=== PATIENT | male | born 1975 | race Caucasian/White ===

== ENCOUNTER 2017-04-06 11:33 | Day surgery (SDC) | payer BC, SELFPAY ==
[2017-04-02 15:41] VITALS: BMI 36.3
[2017-04-06] VITALS (7 sets, daily range): BP systolic 137–149; BP diastolic 78–91; PULSE 71–84; RESP 18; O2SAT 95–98; BMI 36.3
--- NOTE | 2017-04-06 13:06 | HMH.SCOPE ---
- Procedure: Date: 04/06/17 Patient Date of :: 1975 Procedure Performed:: Flexible Sigmoidoscopyaborted Colonoscopy Equipment: Olympus 180 variable stiffness pediatric colonoscope Indications:: Mr. Brown is a 41-year-old gentleman who is here for diagnostic colonoscopy. He has had left lower quadrant abdominal pain that is dull and constant and waxes and wanes in intensity. This has been going on for 3-4 months. The patient stays constipated and has taken ntsl-hrz-yipnlcy laxatives which causes cramps. He reports some bleeding which he attributes to hemorrhoids and describes this as bright red blood with some hemorrhoidal prolapse. This bleeding does occur with his bowel movements. He reports no gassiness or bloating. He reports no fever. His abdominal pain often improves some with the use of Tylenol. He reports no weight loss or family history of colon cancer. Performing Provider:: Noe Rosales MD Referring Provider:: Bandar Banegas MD/Cinthia Araujo PA-C Sedation:: Fentanyl 150 mg IV/ Versed 7 mg IV Procedure:: Prior to the procedure, a history and physical exam was performed, and patient's medications and allergies were reviewed. The risks, benefits and alternatives of the sedation and procedure were discussed with the patient. All questions were answered and informed consent was obtained. The patient was brought to the procedure room. Patient identification and proposed procedure were verified by the physician and the nurse. The patient was placed in a left lateral decubitus position and the scope was passed under direct vision. Throughout the procedure, the patient's blood pressure, pulse, and oxygen saturations were monitored continuously. The colonoscopy was accomplished without difficulty. The patient tolerated the procedure well. Findings:: On digital rectal examination there was normal rectal tone there were no external hemorrhoids the scope was inserted through the anal canal into the rectum and advanced to the mid sigmoid colon. The preparation was very poor with liquid and solid brown stool impairing visualization and advancement of the colonoscope. Upon withdrawal there was one large pedunculated polyp that appeared to be an advanced adenomatous polyp and another moderate sized polyp with 3 additional small polyps. Because of the impaired view because of liquid/solid fecal content and being obscured by this, the polyps were not removed because of the circumstances. There were some diverticuli noted. Upon retroflexion there were grade 1-2 internal hemorrhoids. Impression: 1. Poorly prepped colonoscopyprocedure aborted Recommendations:: Plan: Because of the larger colon polyps identified, I am going to recommend colonoscopy soon with removal of these polyps and examination of the entire colon. I would consider hemorrhoid band ligation based on the size of the hemorrhoids as well. I will discuss this with the patient and family. Complications:: None Estimated blood obtained (mL): 0
--- NOTE | 2017-04-06 13:16 | P.PCN_ITS ---
- Procedure: Date: 04/06/17 Patient Date of :: 1975 Procedure Performed:: Flexible Sigmoidoscopyaborted Colonoscopy Equipment: Olympus 180 variable stiffness pediatric colonoscope Indications:: Mr. Brown is a 41-year-old gentleman who is here for diagnostic colonoscopy. He has had left lower quadrant abdominal pain that is dull and constant and waxes and wanes in intensity. This has been going on for 3-4 months. The patient stays constipated and has taken fpht-fov-mbdrfvv laxatives which causes cramps. He reports some bleeding which he attributes to hemorrhoids and describes this as bright red blood with some hemorrhoidal prolapse. This bleeding does occur with his bowel movements. He reports no gassiness or bloating. He reports no fever. His abdominal pain often improves some with the use of Tylenol. He reports no weight loss or family history of colon cancer. Performing Provider:: Noe Rosales MD Referring Provider:: Bandar Banegas MD/Cinthia Araujo PA-C Sedation:: Fentanyl 150 mg IV/ Versed 7 mg IV Procedure:: Prior to the procedure, a history and physical exam was performed, and patient' s medications and allergies were reviewed. The risks, benefits and alternatives of the sedation and procedure were discussed with the patient. All questions were answered and informed consent was obtained. The patient was brought to the procedure room. Patient identification and proposed procedure were verified by the physician and the nurse. The patient was placed in a left lateral decubitus position and the scope was passed under direct vision. Throughout the procedure, the patient's blood pressure, pulse, and oxygen saturations were monitored continuously. The colonoscopy was accomplished without difficulty. The patient tolerated the procedure well. Findings:: On digital rectal examination there was normal rectal tone there were no external hemorrhoids the scope was inserted through the anal canal into the rectum and advanced to the mid sigmoid colon. The preparation was very poor with liquid and solid brown stool impairing visualization and advancement of the colonoscope. Upon withdrawal there was one large pedunculated polyp that appeared to be an advanced adenomatous polyp and another moderate sized polyp with 3 additional small polyps. Because of the impaired view because of liquid/ solid fecal content and being obscured by this, the polyps were not removed because of the circumstances. There were some diverticuli noted. Upon retroflexion there were grade 1-2 internal hemorrhoids. Impression: 1. Poorly prepped colonoscopyprocedure aborted Recommendations:: Plan: Because of the larger colon polyps identified, I am going to recommend colonoscopy soon with removal of these polyps and examination of the entire colon. I would consider hemorrhoid band ligation based on the size of the hemorrhoids as well. I will discuss this with the patient and family. Complications:: None Estimated blood obtained (mL): 0
== END 2017-04-06 14:00 | disposition home or self-care (01) ==
PROVIDERS: Family Provider Family Medicine; PCP Family Medicine; Visit Provider Internal Medicine Gastroenterology
PROC: 0DJD8ZZ Inspection of Lower Intestinal Tract, Via Natural or Artificial Opening Endoscopic (ICD-10-PCS; CPT 45378; principal; 2017-04-06 13:00)
DX: K63.5 Polyp of colon
CPT/HCPCS: 45330; 99152

== ENCOUNTER 2017-04-13 06:22 | Day surgery (SDC) | payer BC, SELFPAY ==
[2017-04-09 14:22] VITALS: BMI 36.3
[2017-04-13] VITALS (13 sets, daily range): BP systolic 119–162; BP diastolic 1–99; PULSE 70–92; RESP 18–29; TEMP 36.6–36.7; O2SAT 95–99
--- NOTE | 2017-04-13 07:42 | HMH.PROC ---
[facility] Procedure Note Procedure Note:: Colonoscopy Procedure Report: Colonoscopy with cold and hot snare polypectomy and Endo Clip placement Endoscopist: Noe Rosales II, MD Referring physician: Bandar Banegas MD/Cinthia Araujo PA-C Date of Procedure: April 13, 2017 Equipment: Olympus 180 variable stiffness pediatric colonoscope Sedation: Fentanyl 100 mg IV/ Versed 7 mg IV Indication: Mr. Brown is a 41-year-old gentleman here for diagnostic colonoscopy. He has had left lower abdominal pain which is dull and constant but waxes and wanes in intensity. This is been going on for 3-4 months. He has had some constipation and takes uekl-zos-mvithzb laxatives which resulted in some crampy discomfort. He also reports some rectal bleeding which he attributes to internal hemorrhoids and describes this as bright red in nature. He does have some hemorrhoidal prolapse. The bleeding does occur after his bowel movements. He has some improvement of his abdominal pain with Tylenol. He reports no change in his bowel habits, weight loss or family history of colon cancer. He reports no gassiness or bloating. Procedure: Prior to the procedure, a history and physical exam was performed, and patient's medications and allergies were reviewed. The risks, benefits and alternatives of the sedation and procedure were discussed with the patient. All questions were answered and informed consent was obtained. The patient was brought to the procedure room. Patient identification and proposed procedure were verified by the physician and the nurse. The patient was placed in a left lateral decubitus position and the scope was passed under direct vision. Throughout the procedure, the patient's blood pressure, pulse, and oxygen saturations were monitored continuously. The colonoscopy was accomplished without difficulty. The patient tolerated the procedure well. Findings: On digital rectal examination there was normal rectal tone. There were no external hemorrhoids. The colonoscope was introduced through the anal canal to the rectum and advanced to the cecum. The ileocecal valve and appendiceal orifice were identified. The scope was advanced a short distance into the ileum which appeared grossly normal. The scope was then withdrawn into the colon. The preparation was poor with a Erin preparation score of 4. In the sigmoid colon there were 2 larger pedunculated polyps ranging from 14 to 20 mm in size. Both of these were removed via snare cautery. This post polypectomy stalks were clipped using an Endo Clip to provide hemostasis. There were 4 additional sessile polyps range from 5-7 mm in the rectosigmoid and rectum removed via cold snare polypectomy. There were a few scattered diverticuli throughout the descending and sigmoid colon (LEFT colon). The rectum itself was normal. Upon retroflexion within the rectum there were grade 1 internal hemorrhoids. Impression: 1. 2 larger pedunculated sigmoid polyps (14 and 20 mm sizes) 2. 4 additional diminutive rectosigmoid/rectal polyps 3. Mild left-sided diverticulosis 4. Poor bowel preparation (Erin preparation score 4 out of 10) Plan: I will follow-up the polyp histology and repeat screening/surveillance colonoscopy again in 1-2 years based on the histology. I would encourage a fiber bowel regimen on a long-term daily maintenance basis.
--- NOTE | 2017-04-13 07:47 | SUR.OPER ---
CAUTERY 200, COAG 25. GROUNDED TO RIGHT FLANK. SKIN INTACT UPON REMOVAL.
--- NOTE | 2017-04-13 08:14 | P.PCN_ITS ---
[facility] Procedure Note Procedure Note:: Colonoscopy Procedure Report: Colonoscopy with cold and hot snare polypectomy and Endo Clip placement Endoscopist: Noe Rosales II, MD Referring physician: Bandar Bnaegas MD/Cinthia Araujo PA-C Date of Procedure: April 13, 2017 Equipment: Olympus 180 variable stiffness pediatric colonoscope Sedation: Fentanyl 100 mg IV/ Versed 7 mg IV Indication: Mr. Brown is a 41-year-old gentleman here for diagnostic colonoscopy. He has had left lower abdominal pain which is dull and constant but waxes and wanes in intensity. This is been going on for 3-4 months. He has had some constipation and takes olzn-agc-qahockn laxatives which resulted in some crampy discomfort. He also reports some rectal bleeding which he attributes to internal hemorrhoids and describes this as bright red in nature. He does have some hemorrhoidal prolapse. The bleeding does occur after his bowel movements. He has some improvement of his abdominal pain with Tylenol. He reports no change in his bowel habits, weight loss or family history of colon cancer. He reports no gassiness or bloating. Procedure: Prior to the procedure, a history and physical exam was performed, and patient' s medications and allergies were reviewed. The risks, benefits and alternatives of the sedation and procedure were discussed with the patient. All questions were answered and informed consent was obtained. The patient was brought to the procedure room. Patient identification and proposed procedure were verified by the physician and the nurse. The patient was placed in a left lateral decubitus position and the scope was passed under direct vision. Throughout the procedure, the patient's blood pressure, pulse, and oxygen saturations were monitored continuously. The colonoscopy was accomplished without difficulty. The patient tolerated the procedure well. Findings: On digital rectal examination there was normal rectal tone. There were no external hemorrhoids. The colonoscope was introduced through the anal canal to the rectum and advanced to the cecum. The ileocecal valve and appendiceal orifice were identified. The scope was advanced a short distance into the ileum which appeared grossly normal. The scope was then withdrawn into the colon. The preparation was poor with a Rufus preparation score of 4. In the sigmoid colon there were 2 larger pedunculated polyps ranging from 14 to 20 mm in size. Both of these were removed via snare cautery. This post polypectomy stalks were clipped using an Endo Clip to provide hemostasis. There were 4 additional sessile polyps range from 5-7 mm in the rectosigmoid and rectum removed via cold snare polypectomy. There were a few scattered diverticuli throughout the descending and sigmoid colon (LEFT colon). The rectum itself was normal. Upon retroflexion within the rectum there were grade 1 internal hemorrhoids. Impression: 1. 2 larger pedunculated sigmoid polyps (14 and 20 mm sizes) 2. 4 additional diminutive rectosigmoid/rectal polyps 3. Mild left-sided diverticulosis 4. Poor bowel preparation (Rufus preparation score 4 out of 10) Plan: I will follow-up the polyp histology and repeat screening/surveillance colonoscopy again in 1-2 years based on the histology. I would encourage a fiber bowel regimen on a long-term daily maintenance basis.
--- NOTE | 2017-04-13 11:44 | SUR.PHASEII ---
Addendum entered by Lyric De La Rosa RN 04/13/17 11:44: pt called and notified about appt at 1144am. Original Note: fu appt made for follow up with gisel on july 06 at 8:30am
== END 2017-04-13 09:45 | disposition home or self-care (01) ==
LOC: OUTP 06:24
PROVIDERS: Family Provider Family Medicine; PCP Family Medicine; Visit Provider Internal Medicine Gastroenterology
PROC: 0DJD8ZZ Inspection of Lower Intestinal Tract, Via Natural or Artificial Opening Endoscopic (ICD-10-PCS; CPT 45378; principal; 2017-04-13 07:30)
DX: D12.5 Benign neoplasm of sigmoid colon; K57.30 Diverticulosis of large intestine without perforation or abscess without bleeding
CPT/HCPCS: 45384; 45380; 99152; 99153

== ENCOUNTER → 2017-08-20 09:30 | Outpatient (CLI) | payer BC, SELFPAY ==
--- NOTE | 2017-08-20 09:34 | CT_ITS ---
CT angio abdomen CLINICAL INDICATION: Abdominal pain, lower abdominal pain ITS.REASON: AORTITIS ORDERING PHYSICIAN: Edwin Banegas MD PATIENT AGE: 42 years COMPARISON: 5 08/24/2018 TECHNIQUE: Axial images obtained with sagittal and coronal reformats. All CT scans at the facility use one or more dose reduction, viz: automated exposure control; ma/kV adjustment per patient size (including targeted exams where dose is matched to indication; i.e. head); or iterative reconstruction technique. PROCEDURE: Oral Contrast: None IV Contrast: 100 mg of Isovue-370. FINDINGS: Angiographic findings: Abnormal soft tissue density surrounding the lower abdominal aorta beginning inferior to the level the renal arteries and extending to the aortic bifurcation measuring up to 3.8 cm in width, 3.2 cm AP and 5.5 similar cephalad to caudad. The margins of the soft tissue density is fairly well-circumscribed. There is some minimal calcification around the aortic lumen. This appears to be periaortic soft tissue density as opposed to a thrombosed aneurysm.. This does not encase the ureters. No evidence of renal artery stenosis. The superior mesenteric artery and celiac artery are unremarkable. The abnormal soft tissue density does encase the ostium of the inferior mesenteric artery without evidence of occlusion. Nonangiographic findings: Pleural thickening is present involving the lower chest anteriorly centrally and on the right. There are bilateral nonobstructing renal calculi measuring up to 8 mm in the mid polar region on the right and 8 mm in the mid polar region on the left. IMPRESSION: 1. The findings are compatible with progression of retroperitoneal fibrosis/periaortitis with increased soft tissue surrounding the lower abdominal aorta as described above. MRI without and with contrast may confirm. No ureteral dilatation. 2. Bilateral nonobstructing nephrolithiasis.
== END ==
PROVIDERS: Family Provider Family Medicine; PCP Family Medicine; Visit Provider Family Medicine
DX: I77.6 Arteritis, unspecified (principal)
CPT/HCPCS: 74175; Q9967

== ENCOUNTER → 2017-11-02 16:43 | Outpatient (CLI) | payer BC, SELFPAY ==
--- NOTE | 2017-11-02 | XR_ITS ---
XR chest 2V HISTORY: Shortness of breath ITS.REASON: SOB ORDERING PHYSICIAN: Elsa Karimi MD PATIENT AGE: 42 years COMPARISON: 07/25/2014 FINDINGS: There is mild cardiomegaly without failure. Chronic changes are present on the right with pleural thickening in the right upper chest laterally and fibrotic changes in the right upper lobe laterally and right lung base with elevated right hemidiaphragm and pleural thickening in the right lung base. Left lung is clear. No acute bony anomalies. IMPRESSION: Cardiomegaly with chronic changes on the right. No change with no acute finding
== END ==
PROVIDERS: PCP Family Medicine; Visit Provider Family Medicine
DX: R06.02 Shortness of breath (principal)
CPT/HCPCS: 71046

== ENCOUNTER → 2018-02-10 16:58 | Outpatient (POV) | payer BC, SELFPAY | DX: Z00.00 Encounter for general adult medical examination without abnormal findings (principal) ==

== ENCOUNTER → 2018-03-04 12:37 | Outpatient (CLI) | payer BC, SELFPAY ==
--- NOTE | 2018-03-04 12:48 | CA_ITS ---
PROCEDURE: INDICATIONS FOR THE TEST: Chest pain+ COPD Heart Murmur Tobacco Smoking+ Palpitations+ Fatigue+ Syncope Edema+ Hypertension Diabetes Mellitus Rheumatic Fever SOB+VASQUEZ Obesity Hyperlipidemia Family History HD Additional History asthma, dizziness PATIENT INFORMATION HEIGHT: 73 WEIGHT:309 GENDER: Male B/P: 154/92 2-D/M-MODE INTERPRETATION: 2-D MEASUREMENTS OBSERVED VALUES IN CMS Right Ventricular Dimension (RVDd) 3.5 Interventricular Septum (Thickness)(IVsd) 1.1 Left Ventricular Internal Dimensions(LVIDd) 4.2 Left Ventricular Posterior Wall (Thickness)(LVPWd) 1.1 Aortic Root 3.3 Aortic Cusp Separation 2.3 Left Atrial Dimensions (LAD) 3.3 2D 1. Left atrium is normal size, left ventricle is normal size, left ventricle wall thickness is upper limit of the normal, there is preserved left ventricular systolic function, visually estimated ejection fraction 55% with no regional wall motion abnormality. 2. The right atrium and right ventricle are normal size and contractility. 3. The aortic valve is minimally thickened and fibrosed. 4. The mitral and tricuspid valvular grossly normal. 5. The pulmonic valve is poorly visualized. 6. No significant pericardial effusion noted. DOPPLER INTERROGATION: Doppler interrogation of the aortic, mitral and tricuspid valve reveals presence of mild mitral and tricuspid regurgitation, tricuspid regurgitation jet velocity is inadequate for calculation of the right ventricular systolic pressure, diastolic parameters are inconclusive. CONCLUSION: 1. Technically difficult study because of the patient's factor and poor acoustic windows 2. Normal left ventricular size, preserved left ventricular systolic function, visually estimated ejection fraction 55% with no regional wall motion abnormality, diastolic parameters are inconclusive. 3. Mild mitral and tricuspid regurgitation 4. No significant pericardial effusion noted.
--- NOTE | 2018-03-04 13:18 | CT_ITS ---
CT abdomen wo con INDICATION: Retroperitoneal fibrosis. Retroperitoneal mass. Follow-up CT Checking to see if medications help effective ITS.REASON: ABD AND PELVIS SWELLING,MASS ORDERING PHYSICIAN: Betty Billy PATIENT AGE: 42 years COMPARISON: Previous CT abdomen from 08/20/2017. With contrast. TECHNIQUE: No oral nor IV contrast utilized today Axial images obtained obtained through the abdomen only. Pelvis was not imaged/and not ordered. From the acquired images axial sagittal and coronal reformats performed. All CT scans at the facility use one or more dose reduction, viz: automated exposure control, ma/kV adjustment per patient size (including targeted exams where dose is matched to indication, i.e. head), or iterative reconstruction technique. FINDINGS: Lung bases... No new findings.. Fibrotic pleural parenchymal scarring seen at right lung base most evident anteriorly. Immediately above right and yields upper tenting of right hemidiaphragm & slight shift of mediastinum to the right.. No notable change since CT study Jul, 2017. 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 Abdomen/.. Lack of oral and IV contrast decreases sensitivity. Liver. Diffuse fatty changes of liver.. Noncontrast images the liver spleen pancreas unremarkable. Adrenals appear normal. Gallbladder is been removed. No ductal dilatation the pancreatic duct normal. Bilateral renal calculi. Nonobstructive calculi most evident at the left kidney. At the left kidney there is a 6 mm calculus upper pole,; with a a near 7 mm calculus another at midportion left kidney.; & Smaller 4 mm calculus at the lower pole... Nonobstructive calculi. Right kidney. 8 mm calculus at mid right kidney. Duplex collecting system on the right. 2 ureters. Both appear patent and normal caliber. No obstructive uropathy. . On the previous July 2017 studies there is a significant rim of soft tissue surrounding the aorta. This is most pronounced just above bifurcation and the GWEN was seen passing through this thickened soft tissue within the tissue. There is been dramatic interval improvement. The the previous retroperitoneal soft tissue density/mass surrounding lower abdominal aorta has nearly resolved with only scant if any residual. Aorta appears satisfactory here with no soft tissue density about the GWEN origin GWEN unremarkable Common iliac arteries unremarkable. The large and small bowel appears satisfactory. Moderate stool is seen throughout the large bowel. Region of trauma ileum unremarkable. Appendix is been removed. The mesentery shows no significant adenopathy or mass. Images extending down below umbilicus into the upper pelvis but imaging did not extend to the pelvic basin. IMPRESSION 1. There is been marked/dramatic improvement retroperitoneal fibrosis soft tissue density surrounding the aorta. The soft tissue density here has nearly & /basically resolved , with only scant if any residual. Near-complete regression 2. Moderate size Bilateral nonobstructive renal calculi. With Largest measuring near 7 mm mid right & left kidney. 3. Diffuse fatty changes of liver. .
== END ==
PROVIDERS: PCP Family Medicine; Visit Provider Nurse Practitioner Women's Health
DX: R06.02 Shortness of breath (principal); R19.00 Intra-abdominal and pelvic swelling, mass and lump, unspecified site; I77.6 Arteritis, unspecified
CPT/HCPCS: 74150; 93306

== ENCOUNTER → 2020-04-13 14:23 | Outpatient (CLI) | payer BC, SELFPAY | PROVIDERS: PCP Physician Assistant; Visit Provider Physician Assistant | DX: Z20.822 Contact with and (suspected) exposure to COVID-19 (principal) | CPT/HCPCS: U0003 ==

== ENCOUNTER 2020-12-04 22:21 | Emergency (ER) | payer BC, SELFPAY ==
[2020-12-04 22:22] VITALS: BP 134/76; PULSE 93; RESP 18; TEMP 36.7; O2SAT 98; BMI 37.8
--- NOTE | 2020-12-04 22:41 | CT_ITS ---
PROCEDURE INFORMATION: Exam: CT Abdomen And Pelvis Without Contrast Exam date and time: 12/04/2020 10:41 PM Age: 45 years old Clinical indication: Abdominal pain; Flank; Left; Prior surgery; Surgery date: 3-7 days post-operative; Surgery type: Lithotripsy last , HX of gallbladder and appendix SX; Additional info: Lt flank pain TECHNIQUE: Imaging protocol: Computed tomography of the abdomen and pelvis without contrast. Radiation optimization: All CT scans at this facility use at least one of these dose optimization techniques: automated exposure control; mA and/or kV adjustment per patient size (includes targeted exams where dose is matched to clinical indication); or iterative reconstruction. COMPARISON: ABDPELW CT abdomen pelvis w con 10/03/2018 10:03 PM FINDINGS: Lungs: Probable scarring in right middle lobe and right base again noted. Calcified pulmonary nodule again seen in the right base. Liver: Diffuse hypoattenuation noted in the liver compatible with steatosis. Gallbladder and bile ducts: Status post cholecystectomy. Pancreas: Normal. No ductal dilation. Spleen: Normal. No splenomegaly. Adrenal glands: Normal. No mass. Kidneys and ureters: The right kidney demonstrates some mild cortical irregularity which may reflect scarring. On the left, there is tbkb-[id number]-uovppkky hydronephrosis. Mild left hydroureter. This appears to be due to a 4 mm mid left ureteral stone. Another stone is seen in the distal left ureter that measures about 4 mm as well. Third stone also measuring about 4 mm is seen in the very distal left ureter. Additional nonobstructing nephrolithiasis is seen in the left kidney with stones measuring up to 6 mm. Stomach and bowel: Unremarkable. No obstruction. No mucosal thickening. Appendix: No evidence of appendicitis. Intraperitoneal space: Unremarkable. No free air. No significant fluid collection. Vasculature: Unremarkable. No abdominal aortic aneurysm. Lymph nodes: Unremarkable. No enlarged lymph nodes. Urinary bladder: Unremarkable as visualized. Reproductive: Unremarkable as visualized. Bones/joints: Unremarkable. No acute fracture. Soft tissues: Unremarkable. IMPRESSION: 1. Njaj-ci-sdyqpxve left hydronephrosis due to at least 3 left ureteral stones measuring about 4 mm each. Additional left nephrolithiasis. 2. Moderate hepatic steatosis
[2020-12-04 22:46] LABS: Microscopic, Urine URINE MICROSCOPIC (MICROSCOPIC)
--- NOTE | 2020-12-04 22:49 | [facility].EDNVD ---
ED Disposition Clinical Impression: Renal colic on left side, Renal insufficiency Disposition: Home, Self-Care Condition on Discharge: Good Instructions: DI for Kidney Stones Additional Instructions: fluids and call urologist in am Referrals: Elsa Karimi MD [Primary Care Provider] - - Critical Care Critical Care Time: No Attestation: On 12/04/20, the high probability of a clinically significant, sudden or life threatening deterioration of the following system(s) required my full and direct attention, intervention and personal management. The time I documented below is in addition to time spent performing reported procedures but includes the following listed in this critical care notation. Medical Decision Making - Medical Records Medical records reviewed: Yes: I reviewed the patient's medical records. - Bill Inquiry Pt receiving controlled substance: No Vital Signs: 12/04/20 22:22 Temperature 98.1 F Temperature Source Oral Pulse Rate [Right] 93 H Respiratory Rate 18 Blood Pressure [Right Arm] 134/76 Blood Pressure Mean [Right Arm] 95 02 Sat by Pulse Oximetry 98 - Lab Data Lab results reviewed: Yes: I reviewed the patient's lab results. Lab Results 12/04/20 22:30: Urine Color Yellow, Urine Appearance Clear, Urine pH 7.0, Ur Specific [place] 1.010, Urine Protein Negative, Urine Glucose (UA) Negative, Urine Ketones Negative, Urine Blood 1+, Urine Nitrate Negative, Urine Bilirubin Negative, Urine Urobilinogen 0.2, Ur Leukocyte Esterase Negative, Urine RBC 3-5, Urine WBC Occasional, Urine Bacteria 1+ 12/04/20 22:43: WBC 12.2 H, RBC 4.98, Hgb 14.9, Hct 44.2, MCV 88.8, MCH 30.0, MCHC 33.7, RDW 13.4, Plt Count 279, MPV 7.6, Neut % (Auto) 67.0, Lymph % (Auto) 19.7, [place] % (Auto) 9.7 H, Eos % (Auto) 3.0, Baso % (Auto) 0.6, Neut # (Auto) 8.2 H, Lymph # (Auto) 2.4, [place] # (Auto) 1.2 H, Eos # (Auto) 0.4, Baso # (Auto) 0.1, ESR 54 H 12/04/20 22:43: Sodium 138, Potassium 4.5, Chloride 101, Carbon Dioxide 27, Anion Gap 14.5, BUN 25 H, Creatinine 1.90 H, Estimated Creat Clear 89, Estimated GFR 38 L, Est GFR ( Amer) 46 L, Glucose 95, Calcium 9.2, Total Bilirubin 0.4, AST 27, ALT 47, Alkaline Phosphatase 53, C-Reactive Protein 71.6 H, Total Protein 8.1, Albumin 4.4, Globulin 3.7 H, Albumin/Globulin Ratio 1.2, Amylase 54, Lipase 42, Procalcitonin 0.179 Result diagrams: 12/04/20 22:43 12/04/20 22:43 Orders (Tests/Meds): ED MEDICATIONS Generic Name Dose Route Start Last Admin Trade Name Freq PRN Reason Stop Dose Admin Sodium Chloride 1,000 mls @ 999 mls/hr 12/04/20 22:45 12/04/20 22:52 Sod Chlor 0.9% 1000ml Bag IV 12/04/20 23:45 999 mls/hr .[id number] YULIYA Administration Discontinued Medications Generic Name Dose Route Start Last Admin Trade Name Freq PRN Reason Stop Dose Admin Ketorolac Tromethamine 30 mg 12/04/20 22:42 12/04/20 22:53 Ketorolac 30mg/Ml Vial IV 12/04/20 22:43 30 mg ONCE ONE Administration Ondansetron HCl 4 mg 12/04/20 22:42 12/04/20 22:52 Ondansetron 4mg/2ml Vial IV 12/04/20 22:43 4 mg ONCE ONE Administration - CT Data CT Scan: Abdomen, Pelvis Time Received: 00:[address] Reviewed: Yes: I have viewed the radiologist's interpretation Preliminary Findings: Abnormal (see report ) Medical Decision Narrative: multiple kidney stones on lt - after urologic procedure Nausea/Vomiting/Diarrhea HPI - General Chief complaint: Abdominal Pain Stated complaint: Possible Kidney stoines Time Seen by Provider: 12/04/20 22:49 Mode of Arrival: Ambulatory Source of Information: Patient, Medical Record Limitations: No Limitations Description of Symptoms (Recalled from ER Triage Doc. by RN): pt states in and had kidney stone blasted, thursday passed a piece of stone. pt c/o lt flank , LLQ pain that progessive got worse. - History of Present Illness HPI Narrative: lt sided pain after recent kidney stone procedure complaint: nausea, abd
[2020-12-04 22:53] LABS: Basophils # 0.1 K/mm3 (0-0.2); Basophils % 0.6 % (0.1-2.0); Eosinophils # 0.4 K/mm3 (0.0-0.4); Hematocrit 44.2 % (42.0-52.0); Hemoglobin 14.9 g/dL (14.1-18.0); Lymphocytes # 2.4 K/mm3 (0.7-4.5); Lymphocytes % 19.7 % (10-50); Mean Corpuscular HGB Conc 33.7 g/dL (31.8-35.4); Mean Corpuscular Volume 88.8 fl (80-94); Mean Platelet Volume 7.6 fl (7.4-10.4); Monocytes # 1.2 K/mm3 (0.1-1.0); Monocytes % 9.7 % (1.7-9.3); Neutrophils # 8.2 K/mm3 (1.8-7.8); Platelet Count 279 K/mm3 (142-424); Red Blood Count 4.98 M/mm3 (4.60-6.20); Red Cell Distribution Width 13.4 % (11.5-17.5); White Blood Count 12.2 K/mm3 (4.8-10.8)
[2020-12-04 22:55] LABS: Appearance,Urine CLEAR (Clear); Bilirubin,Urine Negative (Negative); Blood, Urine 1+ (Negative); Color,Urine YELLOW (Yellow); Glucose,Urine (UA) Negative (Negative); Ketones,Urine Negative (Negative); Leukocyte Esterase,Urine Negative (Negative); Nitrate,Urine Negative (Negative); Protein,Urine Negative (Negative); Urobilinogen,Urine 0.2 EU/dl (0.2)
[2020-12-04 23:00] LABS: Alanine Aminotransferase 47 U/L (12-78); Albumin Level 4.4 g/dl (3.5-5.0); Albumin/Globulin Ratio 1.2 (1.1-1.8); Alkaline Phosphatase 53 U/L (38-126); Amylase 54 U/L (30-110); Anion Gap 14.5 mEq/L (5-15); Aspartate Amino Transferase 27 U/L (17-59); Bilirubin,Total 0.4 mg/dl (0.2-1.3); Blood Urea Nitrogen 25 mg/dl (9-20); Calcium 9.2 mg/dl (8.4-10.2); Carbon Dioxide 27 mmol/L (22.0-30.0); Chloride 101 mmol/L (98-107); Creatinine Clearance Estimated 89 mL/min (50-200); Estimated Glomerular Filt Rate 38 ml/min (>60); GFR (African American) 46 ML/MIN (>60); Globulin 3.7 g/dL (1.3-3.2); Glucose 95 mg/dl (74-100); Lipase 42 U/L (23-300); Potassium 4.5 mmoL/L (3.5-5.1); Sodium 138 mmol/L (136-145); Total Protein,Serum 8.1 g/dl (6.3-8.2)
[2020-12-04 23:05] LABS: C-Reactive Protein 71.6 mg/L (0-4)
[2020-12-04 23:14] LABS: Bacteria,Urine 1+ /lpf; WBC,Urine Occasional #/hpf (0-3)
[2020-12-04 23:19] LABS: Procalcitonin 0.179 ng/mL (0.0-2.0)
[2020-12-04 23:21] LABS: Erythrocyte Sedimentation Rate 54 mm/hr (0-15)
[2020-12-05 00:16] VITALS: BP 125/74; PULSE 68; RESP 18; TEMP 36.7; O2SAT 98
== END 2020-12-05 00:27 | disposition home or self-care (01) ==
PROVIDERS: Emergency Provider Emergency Medicine; PCP Family Medicine
DX: N20.0 Calculus of kidney (principal); N28.9 Disorder of kidney and ureter, unspecified; F17.210 Nicotine dependence, cigarettes, uncomplicated
CPT/HCPCS: 74176; 80053; 81001; 82150; 83690; 84145; 85025; 85651; 86140; 96365; 96375; 99283; J2405

== ENCOUNTER → 2022-01-30 16:33 | Outpatient (CLI) | payer BC, SELFPAY ==
[2022-01-30 17:05] LABS: Influenza A, PCR Not Detected (NotDetected); Influenza B, PCR Not Detected (NotDetected)
--- NOTE | 2022-01-30 17:08 | XR_ITS ---
PROCEDURE INFORMATION: Exam: XR Left Shoulder Exam date and time: 01/30/2022 4:59 PM Age: 46 years old Clinical indication: Pain; Shoulder; Left; Additional info: Left arm weakness TECHNIQUE: Imaging protocol: Radiologic exam of the Left shoulder. Views: 2 or more views. COMPARISON: DX CXR2V XR chest 2V 11/02/2017 4:52 PM FINDINGS: Bones/joints: Normal. Soft tissues: Normal. IMPRESSION: No acute findings.
[2022-01-30 17:28] LABS: Coronavirus 19, PCR Detected (NotDetected)
== END ==
PROVIDERS: PCP Family Medicine; Visit Provider Physician Assistant
DX: U07.1 COVID-19 (principal); R29.898 Other symptoms and signs involving the musculoskeletal system
CPT/HCPCS: 73030; C9803; U0003; U0005